=== PATIENT | male | born 1955 | race Caucasian/White ===

== ENCOUNTER 2025-03-16 08:36 | Inpatient (IN) | payer MEDICARE, OTHER, SELFPAY ==
[2025-03-06 11:17] LABS: Hematocrit 37.7 % (39.0-52.0); Hemoglobin 12.6 g/dL (13.0-18.0); Mean Corp Hgb Conc. 33.4 g/dL (33.0-37.0); Mean Corpuscular Volume 92.2 fL (80.0-94.0); Platelet Count 221 10^3/uL (130-400); Red Cell Dist. Width 12.6 % (11.5-14.5)
[2025-03-06 11:29] LABS: Glycohemoglobin (HgbA1c) 8.4 % (4.0-5.6)
[2025-03-06 11:36] LABS: ALT (SGPT) 27 U/L (0-50); AST (SGOT) 25 U/L (17-59); Albumin 4.7 g/dl (3.5-5.0); Alkaline Phosphatase 86 U/L (38-126); Blood Urea Nitrogen 15 mg/dl (9-20); Calcium 9.4 mg/dl (8.4-10.2); Carbon Dioxide 25 mmol/L (22-30); Chloride 104 mmol/L (98-107); Glucose 225 mg/dl (70-99); Potassium 4.4 mmol/L (3.5-5.1); Sodium 138 mmol/L (135-145); Total Protein 7.8 g/dl (6.3-8.2); eGFR > 60.00
[2025-03-06 13:16] LABS: Iron 95 ug/dl (49-181)
[2025-03-06 13:25] LABS: Total Iron Binding Capacity 382 ug/dl (261-462)
[2025-03-06 13:59] VITALS: BMI 27.9
[2025-03-06 14:19] VITALS: BMI 27.9
[2025-03-06 15:44] LABS: Ferritin 95.4 ng/ml (17.9-464.0)
[2025-03-06 16:15] LABS: Folate 7.6 ng/ml (2.76-20); Vitamin B12 377 pg/ml (239-931)
--- NOTE | 2025-03-10 13:31 | CM ---
CM reviewed medical records. CM spoke with patient via phone. Patient confirmed demographics. Patient lives independently with . Patient does not have a history of VN or SNF. Patient has required DME for post operative care. Patient is active
with his PCP. Patient has medication coverage.
Patient has made his outpatient PT appointments for 03/18 at [facility].
CM noted patient may be an early discharge candidate. Cm encouraged to arrive to hospital at 8am to be available for PT/OT teaching and ride home.
PLAN: home with outpatient PT
[2025-03-16] VITALS (19 sets, daily range): BP systolic 111–162; BP diastolic 61–95; PULSE 59–63; O2SAT 97
--- NOTE | 2025-03-16 08:51 | W.PN.UPDATE ---
Update Note
Progress Note Update
R hip OA s/p R PATEL w/ Dr Gao 03/16/25
- EARLY DISCHARGE
DVT prophylaxis - ASA, b/l venous foot pumps
HTN - + parameters - monitor BP
NIDDM, A1c 8.4, improving with dietary changes - monitor BS
- Strict carb controlled diet
- Will increase Metformin to BID dosing
- Add standing order Novolog AC, SSI AC, low dose Lantus during admission to accommodate for potential post-surgical BS elevations
- Would benefit from Cefadroxil upon d/c
- F/u w/ endocrinology outpatient
CVA noted incidentally on Brain MRI 2023, on ASA - continue ASA but at 325 mg daily dosing x4 weeks for blood clot prevention
Balance difficulties - on fall precautions
Peripheral neuropathy - add Gabapentin HS
Mild anemia - pre-op anemia panel WNL - non-invasive hgb in AM
Recent ear wound - hold Keflex for now while on IV Ancef
Hypercholesterolemia
Lumbar DDD
Prostate cancer, 2018, status post prostatectomy; recurrence in 2019, status post radiation and previous Lupron
Stress incontinence
Remote history of tobacco abuse
Daily alcohol - 1 drink reported daily
[2025-03-16] MEDS: TYLENOL 650 MG PO ×4 (09:17→23:31)
[2025-03-16] MEDS: MOBIC 15 MG PO (09:18)
[2025-03-16] MEDS: NORMOSOL-R/PLASMALYTE-A 1000 IV ×2 (09:28→20:09)
[2025-03-16 09:30] LABS: Glucose - Point of Care 240 mg/dl (70-99)
[2025-03-16] MEDS: NOVOLOG vial 1 UNITS SC ×3 (09:49→17:41)
[2025-03-16 11:28] LABS: Glucose - Point of Care 203 mg/dl (70-99)
[2025-03-16 13:51] LABS: Glucose - Point of Care 210 mg/dl (70-99)
[2025-03-16] MEDS: ROXICODONE 5 MG PO ×2 (14:32→21:10)
[2025-03-16] MEDS: NORVASC PO (16:45)
[2025-03-16] MEDS: DIOVAN PO (16:46)
[2025-03-16] MEDS: VITAMIN B-12 1000 MCG PO (16:47)
[2025-03-16 17:35] LABS: Glucose - Point of Care 208 mg/dl (70-99)
[2025-03-16] MEDS: GLUCOPHAGE XR EXTENDED RELEASE 500 MG PO (17:57)
--- NOTE | 2025-03-16 19:15 | PTCARENOTE ---
Pt a 69 y/o M post Right total hip arthroplasty arrived from PACU to 2S at 18:50. Pt AOx3, bed in a low position, call light in place, care ongoing.
[2025-03-16] MEDS: ASPIRIN 325 MG PO (20:00)
[2025-03-16] MEDS: ZETIA 10 MG PO (20:00)
[2025-03-16] MEDS: SENOKOT 17.2 MG PO (20:00)
[2025-03-16] MEDS: COLACE 100 MG PO (20:00)
[2025-03-16] MEDS: CRESTOR 20 MG PO (20:00)
[2025-03-16] MEDS: ANCEF 5 IV (20:00)
[2025-03-16] MEDS: BACTROBAN 2% OINTMENT 1 APPLIC NASAL (20:13)
[2025-03-16] MEDS: NOVOLOG FLEXPEN SC ×2 (20:55→20:56)
[2025-03-16] MEDS: NOVOLOG FLEXPEN-MODERATE RESISTANCE SC ×2 (20:58)
[2025-03-16] MEDS: NEURONTIN 300 MG PO (21:10)
[2025-03-16 22:16] LABS: Glucose - Point of Care 247 mg/dl (70-99)
[2025-03-16] MEDS: LANTUS 0.05 UNITS SC (22:21)
[2025-03-17] MEDS: ANCEF 5 IV (03:04)
[2025-03-17] MEDS: TYLENOL 650 MG PO ×2 (03:04→08:09)
[2025-03-17] MEDS: ROXICODONE 5 MG PO ×2 (03:05→06:45)
[2025-03-17 07:10] VITALS: BP 137/66
[2025-03-17 07:24] LABS: Glucose - Point of Care 160 mg/dl (70-99)
[2025-03-17] MEDS: NORVASC 10 MG PO (08:07)
[2025-03-17] MEDS: DIOVAN 320 MG PO (08:10)
[2025-03-17] MEDS: COLACE 100 MG PO (08:10)
[2025-03-17] MEDS: ASPIRIN 325 MG PO (08:10)
[2025-03-17] MEDS: SENOKOT 17.2 MG PO (08:10)
[2025-03-17] MEDS: GLUCOPHAGE XR EXTENDED RELEASE 500 MG PO (08:10)
[2025-03-17] MEDS: CELEBREX 200 MG PO (08:10)
[2025-03-17] MEDS: VITAMIN B-12 1000 MCG PO (08:10)
[2025-03-17] MEDS: NOVOLOG FLEXPEN 2 UNITS SC (08:11)
[2025-03-17] MEDS: FLORASTOR 250 MG PO (08:11)
[2025-03-17] MEDS: BACTROBAN 2% OINTMENT 1 APPLIC NASAL (08:11)
[2025-03-17] MEDS: NOVOLOG FLEXPEN-MODERATE RESISTANCE 1 UNITS SC (08:12)
[2025-03-17 09:35] VITALS: BP 131/55; PULSE 59; O2SAT 97
--- NOTE | 2025-03-17 09:41 | W.PN.ORTHO ---
Today's Communication / Plan
-
Await PT recs. Pt did well w/ OT this AM.
D/c this AM if remaining clinically stable.
Assessment
.
Distal Motor Intact: Yes
Dressing:
Scant old incisional bleeding noted.
Assessment:
R hip OA s/p R PATEL w/ Dr Gao 03/16/25
- EARLY DISCHARGE
DVT prophylaxis - ASA, b/l venous foot pumps
HTN - + parameters - BPs overall stable
NIDDM, A1c 8.4, improving with dietary changes - BS readings improving w/ measures below
- Strict carb controlled diet
- Will increase Metformin to BID dosing. Did advise he continue it this way for at least 1 week post-surgery.
- Standing order Novolog AC, SSI AC, low dose Lantus during admission to accommodate for potential post-surgical BS elevations
- Would benefit from Cefadroxil upon d/c
- Discussed f/u w/ endocrinology outpatient
CVA noted incidentally on Brain MRI 2023, on ASA - continue ASA but at 325 mg daily dosing x4 weeks for blood clot prevention
Balance difficulties - on fall precautions
Peripheral neuropathy - added Gabapentin HS
Mild anemia - pre-op anemia panel WNL - non-invasive hgb 11.6 POD 1
Recent ear wound - hold Keflex for now while on IV Ancef
- Will transition from Keflex to Cefadroxil upon d/c
- Will have sutures removed by later this week. Advised he call primary care to get this taken care of
Hypercholesterolemia
Lumbar DDD
Prostate cancer, 2018, status post prostatectomy; recurrence in 2020, status post radiation and previous Lupron
Stress incontinence
Remote history of tobacco abuse
Daily alcohol - 1 drink reported daily
Side note: The patient did voice some concerns re: overnight staffing. This was discussed with Beatris Sethi, rollout manager of [address] [place] [address]. She will discuss further with patient prior to d/c.
Plan
.
Surgery / Date: R PATEL w/ Dr Gao 03/16/25
DVT Prophylaxis: Aspirin
Activity:
Out of bed.
PT/OT
Discharge Plan: Home w/ Outpatient PT
Subjective
.
.:
Patient resting comfortably in bed this AM.
R hip pain tolerable w/ minimal pain meds.
Denies any new significant complaints.
Eager for potential d/c today.
Vital Signs and Labs
.
Vital Signs and Labs:
Lab Results
03/06/25 10:27
03/06/25 10:27
Temp Pulse Resp BP Pulse Ox
98.5 F 60 14 137/66 96
03/17/25 07:10 03/17/25 08:10 03/17/25 07:10 03/17/25 08:10 03/17/25 07:10
Non-invasive Hgb result: 11.6
Physical Exam
-
HEENT: No pallor, cyanosis, or jaundice. Throat clear. L ear wound with drainage. Wound closed w/ well-approximated sutures.
NECK: Supple. No JVD.
RESPIRATORY: Lungs clear to auscultation.
CVS: S1, S2 normal. RRR.
ABDOMEN: Soft, non-tender. No distension.
EXTREMITIES: Strength equal, no calf pain with palpation/dorsiflexion. Calves soft.
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 No focal deficits. strip cleaner grossly intact
--- NOTE | 2025-03-17 09:55 | W.DS.TRANS ---
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
-
Discharge Instructions:
Sleep Apnea Risk Intermediate
Discharge Diagnosis/Procedures R hip OA s/p R PATEL w/ Dr Gao 03/16/25
Diet Diabetic, Carb Controlled
Additional Diets Strict carb control advised given recent
hemoglobin A1c of 8.4.
Adequate hydration, minimize opioids, and wear
TEDs stockings to prevent low blood pressure/
dizziness.
Activity As tolerated,With Walker
Driving Restrictions Not until seen by your Dr
Bathing Restrictions OK to Shower
Other Services PT
Wound Care Dressing to be removed 1 week post-surgery.
Gallagher to be removed at 2 week follow-up with
surgeon's office.
Instructions:
Stand-Alone Forms: Total Hip/Knee Replacement D/C
Changes to Home Medications: Yes
Discharge Medications:
DC Medications w/original date entered in [facility]
coQ10 (ubiquinol) 200 mg capsule 200 mg PO QPM Supplement 03/05/25
Held on 03/17/25. Instructions: Resume on 03/23/25.
cyanocobalamin (vitamin B-12) 1,000 mcg tablet (Vitamin B-12) 1,000 mcg PO DAILY Supplement 03/05/25
ezetimibe 10 mg tablet 10 mg PO QPM High Cholesterol 03/05/25
rosuvastatin 20 mg tablet 20 mg PO QPM High Cholesterol 03/05/25
cefadroxil 500 mg capsule 500 mg PO BID #14 caps 03/06/25
celecoxib 200 mg capsule (Celebrex) 200 mg PO DAILY #14 caps 03/06/25
famotidine 20 mg tablet (Pepcid) 20 mg PO HS #30 tabs 03/06/25
gabapentin 300 mg capsule 300 mg PO HS neuropathic pain/sleep #10 caps 03/06/25
mupirocin 2 % topical ointment 1 applic intranasal BID #1 tube 03/06/25
ondansetron HCl 4 mg tablet 4 mg PO Q6H PRN nausea and vomiting #30 tabs 03/06/25
oxycodone 5 mg tablet 5 - 10 mg (1 - 2 x 5 mg) PO Q6H PRN moderate-severe pain #30 tabs 03/06/25
Saccharomyces boulardii 250 mg capsule 250 mg PO BID #14 caps 03/17/25
acetaminophen 500 mg tablet (Tylenol Extra Strength) 1,000 mg (2 x 500 mg) PO Q6H #60 tabs 03/17/25
amlodipine 10 mg tablet 10 mg PO DAILY Blood Pressure #1 tab 03/17/25
aspirin 325 mg tablet 325 mg PO DAILY #30 tabs 03/17/25
docusate sodium 100 mg capsule 100 mg PO BID #30 caps 03/17/25
metformin 500 mg tablet,extended release 24 hr 500 mg PO BID #14 tabs 03/17/25
sennosides 8.6 mg tablet (Estela-korey) 17.2 mg (2 x 8.6 mg) PO BID #30 tabs 03/17/25
valsartan 320 mg tablet 320 mg PO DAILY Blood Pressure #0 tabs 03/17/25
Home Medication Changes
cefadroxil 500 mg capsule 500 mg PO BID #14 caps 03/06/25
celecoxib 200 mg capsule (Celebrex) 200 mg PO DAILY #14 caps 03/06/25
famotidine 20 mg tablet (Pepcid) 20 mg PO HS #30 tabs 03/06/25
gabapentin 300 mg capsule 300 mg PO HS neuropathic pain/sleep #10 caps 03/06/25
ondansetron HCl 4 mg tablet 4 mg PO Q6H PRN nausea and vomiting #30 tabs 03/06/25
oxycodone 5 mg tablet 5 - 10 mg (1 - 2 x 5 mg) PO Q6H PRN moderate-severe pain #30 tabs 03/06/25
Saccharomyces boulardii 250 mg capsule 250 mg PO BID #14 caps 03/17/25
acetaminophen 500 mg tablet (Tylenol Extra Strength) 1,000 mg (2 x 500 mg) PO Q6H #60 tabs 03/17/25
aspirin 325 mg tablet 325 mg PO DAILY #30 tabs 03/17/25
docusate sodium 100 mg capsule 100 mg PO BID #30 caps 03/17/25
metformin 500 mg tablet,extended release 24 hr 500 mg PO BID #14 tabs 03/17/25
sennosides 8.6 mg tablet (Estela-korey) 17.2 mg (2 x 8.6 mg) PO BID #30 tabs 03/17/25
Pending Results: No
[2025-03-17 10:24] VITALS: BP 116/53; PULSE 79
[2025-03-17 10:59] VITALS: BP 126/64
== END 2025-03-17 11:25 | disposition home or self-care (01) | DRG 470 ==
LOC: 2 SOUTH 08:36
PROVIDERS: ADMITTING PHYSICIAN Specialist; FAMILY PHYSICIAN Family Medicine
PROC: 0SR90JA Replacement of Right Hip Joint with Synthetic Substitute, Uncemented, Open Approach (ICD-10-PCS; 2025-03-16)
DX: M16.11 Unilateral primary osteoarthritis, right hip (principal); E78.00 Pure hypercholesterolemia, unspecified; Z86.73 Personal history of transient ischemic attack (TIA), and cerebral infarction without residual deficits; E11.40 Type 2 diabetes mellitus with diabetic neuropathy, unspecified; M51.369 Other intervertebral disc degeneration, lumbar region without mention of lumbar back pain or lower extremity pain; Z90.79 Acquired absence of other genital organ(s); Z85.46 Personal history of malignant neoplasm of prostate; D64.9 Anemia, unspecified; N39.3 Stress incontinence (female) (male); Z87.891 Personal history of nicotine dependence; I10 Essential (primary) hypertension; Z79.82 Long term (current) use of aspirin; Z79.84 Long term (current) use of oral hypoglycemic drugs; Z92.3 Personal history of irradiation
CPT/HCPCS: 36415; 73502; 80053; 82607; 82728; 82746; 82962; 83036; 83540; 83550; 85027; 87070; 93005; 97116; 97162; 97167; 97530; 97535; C1713; C1776

== ENCOUNTER → 2025-05-01 11:54 | Outpatient (REF) | payer MEDICARE, OTHER, SELFPAY | LOC: RAD 11:54 | PROVIDERS: ATTENDING PHYSICIAN Specialist; FAMILY PHYSICIAN Family Medicine | DX: Z96.641 Presence of right artificial hip joint (principal); M79.661 Pain in right lower leg | CPT/HCPCS: 93971 ==